=== PATIENT | male | born 1960 | race Two or more races ===

== ENCOUNTER 2018-05-30 16:11 | Emergency (ER) | payer OTHER ==
--- NOTE | 2018-05-30 17:11 | ED Physician Documentation ---
PD HPI HEAD INJURY - Stated complaint Stated Complaint: HEAD LAC - Chief complaint Chief Complaint: Laceration - History obtained from History obtained from: Patient - History of Present Illness Mechanism of head injury: Blow (piece of bathtub fell to top of head as he was trying to lift it overhead into a dumpster. No LOC, nausea, visual changes, confusion. Scalp lac.) Where head injury occurred: Work Timing - onset: Today Location of injury: Front, Top Quality of pain: Aching Associated symptoms: Other (laceration that bled well and with cleansed and butterflies by coworkers. Here for eval of possible sutures.). No: LOC, AMS, Nausea / vomiting, Neck pain Symptoms worsen with: Palpation Contributing factors: No: Anticoagulated Similar symptoms before: Has not had sx before Recently seen: Not recently seen Review of Systems Constitutional: denies: Fever Nose: denies: Rhinorrhea / runny nose, Congestion Throat: denies: Sore throat Respiratory: denies: Cough GI: denies: Nausea, Vomiting Skin: reports: Laceration (s) Neurologic: denies: Generalized weakness, Focal weakness, Numbness, Difficulty speaking, Confused, Altered mental status PD PAST MEDICAL HISTORY - Past Medical History Cardiovascular: None Respiratory: None Neuro: None - Allergies Allergies/Adverse Reactions: Allergies Allergy/AdvReac Type Severity Reaction Status Date / Time No Known Drug Allergies Allergy Verified 05/30/18 16:24 PD ED PE NORMAL - Vitals Vital signs reviewed: Yes - General General: Alert and oriented X 3, No acute distress, Well developed/nourished - HEENT HEENT: PERRL, EOMI, Dentition benign, Other (top of scalp frontal area with 2.5 cm laceration with sharp edges. Goes to fatty tissue and with slight oozing of bleeding. No depression of scalp. 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, No motor deficit, No sensory deficit, Normal speech Eye Opening: Spontaneous Motor: Obeys Commands Verbal: Oriented GCS Score: 15 Results - Vitals Vitals: Vital Signs - 24 hr 05/30/18 05/30/18 16:16 17:31 Temperature 36 C L 36.8 C Heart Rate 56 L 59 L Respiratory 16 16 Rate Blood Pressure 138/75 H 143/92 H O2 Saturation 99 100 Oxygen O2 Source Room air Procedures - Laceration (location) frontal scalp Length in cm: 2.5 Wound type: Linear, Into subcut fat, Clean Neurovascular status: Sensory intact Anesthesia: Lidocaine 1% with epi Wound Preparation: Other (cleansed with tap water) Skin layer closure: Brittani (11 placed) Other: Patient tolerated well, No complications, Dressing applied, Tetanus booster given Complexity: Simple PD MEDICAL DECISION MAKING - ED course Complexity details: considered differential (no concussive symptoms.), d/w patient Departure - Departure Disposition: 01 Home, Self Care Clinical Impression: Scalp laceration Qualifiers: Encounter type: initial encounter Qualified Code(s): S01.01XA - Laceration without foreign body of scalp, initial encounter Condition: Stable Record reviewed to determine appropriate education?: Yes Instructions: ED Laceration Scalp Stitch Or Stap Comments: It is okay to wash and shower. Clean off the wound twice a day with soap and water, or peroxide and water. Apply some antibiotic ointment to it to keep it moist. Also to watch for signs of infection such as purulence, redness or increasing pain. Return to your primary care or the ER at the specified time for suture removal. Staple removal 8-10 days. Discharge Date/Time: 05/30/18 17:51
[2018-05-30 17:32] VITALS: BP 143/92
[2018-05-30] MEDS: TETANUS/DIPHTHERIA/PERTUSSIS 0.5 ML SYRINGE IM ONE (17:36)
[2018-05-30] MEDS ORDERED: BACITRACIN OINT TOP ONE (17:46)
== END 2018-05-30 17:51 | disposition home or self-care (01) ==
LOC: ED 16:11
DX: S01.01XA Laceration without foreign body of scalp, initial encounter (principal); W22.8XXA Striking against or struck by other objects, initial encounter; Y99.0 Civilian activity done for income or pay; Z23 Encounter for immunization
CPT/HCPCS: 1040M; 12001; 90471; 99282; 99283

== ENCOUNTER 2018-06-09 15:55 | Emergency (ER) | payer OTHER ==
[2018-06-09 16:01] VITALS: BP 131/74
--- NOTE | 2018-06-09 16:08 | ED Physician Documentation ---
PD HPI WOUND RECHECK - Stated complaint Stated Complaint: POST SURG STAPLE REMOVAL - Chief complaint Chief Complaint: General - Histroy obtained from History obtained from: Patient - History of Present Illness Location: Scalp (He has been taking care of the wound with cleaning and ointment. He states it is well healing and is here for suture staple removal.) Associated symptoms: No: Fever, Redness, Drainage Recently seen: Emergency Dept Review of Systems Neurologic: denies: Generalized weakness, Altered mental status, Headache, Head injury PD PAST MEDICAL HISTORY - Past Medical History Cardiovascular: None Respiratory: None Neuro: None Endocrine/Autoimmune: None GI: None : None HEENT: None Psych: None Musculoskeletal: None Derm: None - Present Medications Home Medications: Ambulatory Orders Medication Instructions Recorded Confirmed No Known Home Medications 06/09/18 06/09/18 - Allergies Allergies/Adverse Reactions: Allergies Allergy/AdvReac Type Severity Reaction Status Date / Time No Known Drug Allergies Allergy Verified 06/09/18 16:01 - Social History Does the pt smoke?: No Smoking Status: Never smoker - Immunizations Immunizations are current?: No Immunizations: TDAP >10years/unknown PD ED PE NORMAL - Vitals Vital signs reviewed: Yes - General General: Alert and oriented X 3, No acute distress, Well developed/nourished - HEENT HEENT: Other (Staple line is intact and the wound is well-healing without any signs of action. They look ready for removal.) - Derm Derm: Normal color, Warm and dry Results - Vitals Vitals: Vital Signs - 24 hr 06/09/18 16:00 Temperature 36.2 C L Heart Rate 65 Respiratory 18 Rate Blood Pressure 131/74 H O2 Saturation 97 Oxygen O2 Source Room air PD MEDICAL DECISION MAKING - ED course Complexity details: considered differential (The wound is well-healing and no signs of infection.), d/w patient Departure - Departure Disposition: 01 Home, Self Care Clinical Impression: Removal of staple Condition: Stable Record reviewed to determine appropriate education?: Yes Comments: The wound appears well-healing and looks like you are taking care of it well. Recheck if problems. Discharge Date/Time: 06/09/18 16:14
== END 2018-06-09 16:14 | disposition home or self-care (01) ==
LOC: ED 15:55
DX: S01.01XD Laceration without foreign body of scalp, subsequent encounter (principal); X58.XXXD Exposure to other specified factors, subsequent encounter
CPT/HCPCS: 99281

== ENCOUNTER 2022-10-07 14:52 | Emergency (ER) | payer OTHER ==
[2022-10-07 15:07] VITALS: BP 157/95
--- NOTE | 2022-10-07 15:10 | ED Physician Documentation ---
PD HPI LOWER EXT INJURY - Stated complaint Stated Complaint: HIP PX - Chief complaint Chief Complaint: Ext Problem - History obtained from History obtained from: Patient - History of Present Illness PD HPI LOW EXT INJURY LOCATION: Right, Hip (laterally) Type of injury: Twist (He states he had not been out golfing for a long time, about a year, and went out several days ago and was hitting drives for quite a while. He noted onset of right lateral hip pain later in the day and has gotten worse.). No: Fall, Blunt / blow Where injury occurred: Other (golf course) Timing - onset: How many days ago (4) Timing - duration: Days (4) Timing - details: Gradual onset, Still present (increasingly painful each day.) Improved by: Rest (but still hurts even rested), Ice, Meds (moderate improvement with Ibuprofen.) Worsened by: Moving, Palpating (lateral hip) Associated symptoms: Swelling (locally). No: Weakness, Numbness, Discolored Review of Systems Constitutional: denies: Fever, Chills Skin: denies: Rash, Lesions Neurologic: denies: Focal weakness, Numbness PD PAST MEDICAL HISTORY - Past Medical History Cardiovascular: None Respiratory: None, Other Neuro: None Endocrine/Autoimmune: None GI: None : None HEENT: None Psych: None Musculoskeletal: None Derm: None - Past Surgical History General: Colonoscopy, Other HEENT: Tonsil/Adenoidectomy - Present Medications Home Medications: Ambulatory Orders Medication Instructions Recorded Confirmed HYDROcod/ACETAM 5/325 [[place] 5/325] 1 ea PO Q6H PRN #10 tablet 10/07/22 methocarbamoL [Robaxin] 500 mg PO Q6H PRN #20 tablet 10/07/22 - Allergies Allergies/Adverse Reactions: Allergies Allergy/AdvReac Type Severity Reaction Status Date / Time No Known Drug Allergies Allergy Verified 10/07/22 15:07 - Social History Does the pt smoke?: No Smoking Status: Never smoker - Immunizations Immunizations are current?: No Immunizations: TDAP >10years/unknown PD ED PE NORMAL - Vitals Vital signs reviewed: Yes - General General: Alert and oriented X 3, No acute distress, Well developed/nourished - Derm Derm: Normal color, Warm and dry - Extremities Extremities: Other (He is quite focally tender at the greater trochanter and just inferior. Pain with abduction and external rotation of the upper leg. No pain with flexion extension nor internal rotation. No skin sores or redness.) - Neuro Neuro: Alert and oriented X 3, No motor deficit, No sensory deficit Results - Vitals Vitals: Vital Signs - 24 hr 10/07/22 15:03 Temperature 36.1 C L Heart Rate 62 Respiratory 16 Rate Blood Pressure 157/95 H O2 Saturation 100 Oxygen O2 Source Room air - Rads (name of study) right hip Relevant Findings:: Prelim report reviewed, EMP independent interpretation of test (small calcification at bursal area c/w likely chronic irritation. ), See rad report PD Medical Decision Making - ED course Complexity details: considered differential (Mechanism of overuse with the golfing and rotation combined with a local location of the pain is consistent with bursitis and tendinitis.), d/w patient, other (Discussed with the patient and he agreed to a local injection with Kenalog and lidocaine at the bursal area. This was done without complication.) Departure - Departure Disposition: 01 Home, Self Care Clinical Impression: Trochanteric bursitis of right hip Condition: Stable Record reviewed to determine appropriate education?: Yes Instructions: Trochanteric Bursitis Follow-Up: BAKARI LLANOS DO [Primary Care Provider] - Prescriptions: HYDROcod/ACETAM 5/325 [[place] 5/325] 1 ea PO Q6H PRN #10 tablet PRN Reason: Pain methocarbamoL [Robaxin] 500 mg PO Q6H PRN #20 tablet PRN Reason: Spasms Comments: Your x-ray does not show any fractures or bony lesions. There is actually a mild spurring at the bursa which suggests probably some chronic inflammation in the past or recurrent. It does sound now that you have an acute inflammation of the bursa and the tendon attachment (bursitis/tendinitis). I would anticipate this to improve with some ice or cool towels periodically to the area along with decreased motion and irritation but spurred with some anti-inflammatories such as ibuprofen or naproxen 2-3 times daily for the next several days to week. There can be muscle spasms at times so you could use Robaxin/methocarbamol if needed for stiffness or spasms of the muscles. To that add Tylenol every 4-6 hours if needed and I did prescribe a small supply of hydrocodone if needed for worse pain at times. I did do local injection with some steroid anti-inflammatory as well as some lidocaine. This should help a fair amount locally in the next day or 2. I would anticipate improvement over the next 2 to 3 days and resolution by likely 5 to 7 days. Progress activity as tolerated. Follow-up if not better in that timeframe. I sent prescriptions to your [facility] pharmacy. I am prescribing a short course of narcotic pain medication for you. These are potentially dangerous and addictive medications that should be used carefully. These medications may constipate you. Take an [id number] stool softener such as docusate twice daily with plenty of water while taking these medicati ons. If you go 24 hours without a bowel movement, take [id number] MiraLAX, per package instructions. Do not drink or drive while taking these medications. If you received narcotic or sedating medications while in the emergency department do not drive for 24 hours. Store this medication in a safe, secure place and out of reach of children. It is a violation of federal law to give or sell this medication to another person or to use in a manner other than prescribed. The ED will not refill narcotic prescriptions, including prescriptions lost or stolen. You can dispose of unwanted medications at the [facility] office or at several pharmacies such as [facility]. Discharge Date/Time: 10/07/22 16:00
[2022-10-07] MEDS ORDERED: TRIAMCINOLONE 40 MG/ML VIAL MC STA (15:26)
[2022-10-07] MEDS ORDERED: methocarbamoL 500 MG TABLET PO STA (15:27)
--- NOTE | 2022-10-07 15:46 | XRAY Report ---
PROCEDURE: Hip w/Pelvis 2-3V RT INDICATIONS: right lateral hip pain after golfing TECHNIQUE: AP pelvis with lateral view(s) of the right hip(s). COMPARISON: None. FINDINGS: Bones: No fractures or dislocations. No suspicious bony lesions. Soft tissues: No suspicious soft tissue calcifications or masses. IMPRESSION: No acute bony abnormality. If there remains a high clinical concern for fracture, consider cross-sect ional imaging now. If pain persists, consider repeat x-ray in 10-14 days or cross-sectional imaging. Reviewed by: Kalen Segovia MD on 10/07/2022 3:45 PM PDT Approved by: Kalen Segovia MD on 10/07/2022 3:45 PM PDT Station ID: [id number]
== END 2022-10-07 16:00 | disposition home or self-care (01) ==
LOC: ED 14:52
DX: M70.61 Trochanteric bursitis, right hip (principal)
CPT/HCPCS: 20610; 73502; 99283; 99284; A9270